=== PATIENT | female | born 1965 | race American Indian/Alaskan Native ===

== ENCOUNTER 2017-10-30 10:04 | Outpatient (CLI) | payer OTHER ==
--- NOTE | 2017-10-30 14:48 | XRay Report ---
CHEST TWO VIEWS: 10/30/17 10:04:00 CLINICAL: Preop cardiovascular clearance. COMPARISON: None FINDINGS: Normal heart and pulmonary vasculature. The lungs are normally expanded and clear.Moderate degenerative change in the thoracic spine with flowing anterior and lateral osteophytes. IMPRESSION: No acute cardiopulmonary process.
== END 2017-10-30 10:05 | disposition home or self-care (01) ==
LOC: SPVIMAG 10:04
PROVIDERS: ATTEND Internal Medicine
DX: Z01.811 Encounter for preprocedural respiratory examination (principal); M47.816 Spondylosis without myelopathy or radiculopathy, lumbar region; M25.78 Osteophyte, vertebrae
CPT/HCPCS: 71046